=== PATIENT | female | born 1960 | race Caucasian/White ===

== ENCOUNTER 2018-10-12 05:59 | Day surgery (SDC) | payer BC ==
[2018-10-11 16:25] LABS: BASOPHILS % (AUTO) 0.3 % (0-1); EOSINOPHILS # (AUTO) 0.1 X10'3 (0-0.9); EOSINOPHILS % (AUTO) 1.1 % (0-6); LYMPHOCYTES # (AUTO) 1.8 X10'3 (1.1-4.8); LYMPHOCYTES % (AUTO) 25.5 % (21-51); MEAN CORPUSCULAR HEMOGLOBIN 29.5 PG (27.0-31.0); MEAN CORPUSCULAR HGB CONC 33.7 % (33.0-36.5); MEAN CORPUSCULAR VOLUME 87.5 FL (78-98); MEAN PLATELET VOLUME 8.2 FL (7.4-10.4); MONOCYTES # (AUTO) 0.5 X10'3 (0-0.9); MONOCYTES % (AUTO) 6.8 % (2-12); NEUTROPHILS # (AUTO) 4.7 X10'3 (1.8-7.7); NEUTROPHILS % (AUTO) 66.3 % (42-75); PRE OP HEMATOCRIT 37.4 % (35.0-45.0); PRE OP HEMOGLOBIN 12.6 g/dL (12.0-16.0); PRE OP PLATELET COUNT 218 X10'3 (140-440); RED BLOOD COUNT 4.27 X10'6 (4.20-5.60); RED CELL DISTRIBUTION WIDTH 13.1 % (11.5-14.5)
[2018-10-11 16:42] LABS: ALBUMIN 3.7 G/DL (3.4-5.0); ALBUMIN/GLOBULIN RATIO 1.2 (1.1-1.5); ALKALINE PHOSPHATASE 57 IU/L (46-116); BLOOD UREA NITROGEN 14 MG/DL (7-18); BUN/CREATININE RATIO 18.9 (6.6-38.0); CALCIUM 9.2 MG/DL (8.5-10.1); CHLORIDE 108 MMOL/L (99-107); CREATININE 0.74 MG/DL (0.40-0.90); PRE OP ALT 25 U/L (30-65); PRE OP ANION GAP 7 (8-16); PRE OP AST 20 U/L (10-37); PRE OP BILIRUB, TOTAL 0.4 MG/DL (0.0-1.0); PRE OP GLUCOSE 106 MG/DL (70-104); PRE OP POTASSIUM 3.6 MMOL/L (3.4-5.1); PRE OP SODIUM 145 MMOL/L (135-145); TOTAL CARBON DIOXIDE 29.7 MMOL/L (24-32); TOTAL PROTEIN 6.9 G/DL (6.4-8.2); eGFR 81 ML/MIN
[~2018-10-12] VITALS: Ht 172.7 cm; Wt 67.1 kg
[2018-10-12] VITALS (8 sets, daily range): BP systolic 95–109; BP diastolic 59–69
[~2018-10-12 05:59] MED LIST: ESTR1TAB19 PO; PROG100C6 PO
[2018-10-12] MEDS: ringers solution, lacted 1,000 ML IV SCH (06:40)
[2018-10-12] MEDS: famotidine 20mg tablet PO ONE (06:40)
[2018-10-12] MEDS: cefazolin/dext.iso 2gm/50ml 50 ML IV ONE (06:40)
[2018-10-12] MEDS ORDERED: cloNIDine hcl/PF 100mcg/ml inj ONE (08:10)
[2018-10-12] MEDS ORDERED: midazolam 2 mg/2 ml injection ONE ×2 (08:12→08:13)
[2018-10-12] MEDS ORDERED: fentaNYL/PF 50MCG/1 ML 2ML syringe ONE (08:12)
[2018-10-12] MEDS ORDERED: ringers solution, lacted 1,000 ML IV SCH (08:16)
[2018-10-12] MEDS ORDERED: ROPIVAcaine 0.5% (5mg/ml) 30ml vial ONE (08:18)
[2018-10-12] MEDS ORDERED: rocuronium 10mg/ml inj IV ONE (08:19)
[2018-10-12] MEDS ORDERED: sevoflurane 250ml liquid IH ONE (08:19)
[2018-10-12] MEDS ORDERED: meperidine/PF 25mg/ml syringe IV PRN ×3 (08:20)
[2018-10-12] MEDS ORDERED: ondansetron/PF 4mg/2ml inj IV PRN (08:20)
[2018-10-12] MEDS ORDERED: LIDOcaine 1%/PF 5ML 10 MG/ML VIAL ONE (08:20)
[2018-10-12] MEDS ORDERED: propofol inj 20 ML IV ONE (08:20)
[2018-10-12] MEDS ORDERED: morphine 4 MG/ML inj SYRINge IV PRN ×2 (08:20)
[2018-10-12] MEDS ORDERED: proCHLORperazine 10 MG/2 ml inj IV PRN (08:20)
[2018-10-12] MEDS ORDERED: dexamethasone sod phosphate 4mg/ml inj. ONE (09:28)
[2018-10-12] MEDS ORDERED: ondansetron/PF 4mg/2ml inj ONE (09:28)
[2018-10-12] MEDS: BUPIVAcaine/PF 2.5mg/ml (0.25%) 10ml vial ONE (09:34)
[2018-10-12] MEDS ORDERED: ePHEDrine 50MG/ML INJ. ONE (09:38)
[2018-10-12] MEDS ORDERED: glycopyrrolate 0.2mg/ml inj ONE (09:38)
[2018-10-12] MEDS ORDERED: meperidine/PF 50mg/ml syringe ONE (09:52)
[2018-10-12] MEDS ORDERED: HYDROcodone/acetaminophen 10/325mg tab PO PRN (10:05)
== END 2018-10-12 11:15 | disposition home or self-care (01) ==
LOC: PAS 05:59
PROVIDERS: ATTEND Orthopaedic Surgery
DX: M75.111 Incomplete rotator cuff tear or rupture of right shoulder, not specified as traumatic (principal); M75.51 Bursitis of right shoulder; M25.711 Osteophyte, right shoulder; M65.811 Other synovitis and tenosynovitis, right shoulder; M19.011 Primary osteoarthritis, right shoulder; M24.111 Other articular cartilage disorders, right shoulder; M19.90 Unspecified osteoarthritis, unspecified site; Z79.891 Long term (current) use of opiate analgesic; Z88.1 Allergy status to other antibiotic agents; Z98.890 Other specified postprocedural states; Z79.899 Other long term (current) drug therapy; Z88.8 Allergy status to other drugs, medicaments and biological substances
CPT/HCPCS: 29826; 29827; 36415; 64450; 80053; 85025; 93005; A6449; C1713; J0690; J0735; J1100; J2001; J2175; J2250; J2405; J2704; J3010; J3490; A7000; J2795; J7030; J7120